=== PATIENT | male | born 2000 | race Caucasian/White ===

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

== ENCOUNTER 2019-03-22 12:26 | Emergency (ER) | payer MEDICAID ==
[2019-03-22 13:34] LABS: ADD UMIC YES; UR ASCORBIC ACID NEGATIVE (NEGATIVE); UR BACTERIA FEW /HPF (NONE SEEN); UR BILIRUBIN (Dip) NEGATIVE (NEGATIVE); UR BLOOD (Dip) NEGATIVE (NEGATIVE); UR CLARITY CLOUDY (CLEAR); UR COLOR AMBER (YELLOW); UR GLUCOSE (Dip) NEGATIVE (NEGATIVE); UR KETONES (Dip) NEGATIVE (NEGATIVE); UR LEUKOCYTE ESTERASE (Dip) 3+ Leu/ul (NEGATIVE); UR MUCUS MODERATE /HPF (NONE SEEN); UR NITRITE (Dip) NEGATIVE (NEGATIVE); UR RBC 19 /HPF (0-5); UR SPECIFIC GRAVITY (Dip) 1.027 (1.003-1.030); UR SQUAMOUS EPITHELIAL CELL FEW /HPF (FEW); UR TOTAL PROTEIN (Dip) 2+ mg/dl (NEGATIVE); UR UROBILINOGEN (Dip) 1+ mg/dL (NEGATIVE); UR WBC > 182 /HPF (0-5)
[2019-03-22] MEDS: CEFTRIAXONE 250 MG INJ IM (14:45)
[2019-03-22] MEDS: LIDOCAINE 1% (MPF) 5 ML VIAL INJ (14:45)
[2019-03-22] MEDS: AZITHROMYCIN 500 MG TAB PO (14:45)
== END 2019-03-22 14:59 | disposition home or self-care (01) ==
LOC: FTE 12:26
DX: R36.9 Urethral discharge, unspecified (principal)
CPT/HCPCS: 81001; 87591; 96372; 99284-25

== ENCOUNTER 2019-04-29 09:52 | Emergency (ER) | payer MEDICAID ==
[2019-04-29] MEDS: AZITHROMYCIN 500 MG TAB PO (10:23)
[2019-04-29] MEDS: CEFTRIAXONE 250 MG INJ IM (10:23)
== END 2019-04-29 10:41 | disposition home or self-care (01) ==
LOC: FTE 09:52
DX: N34.2 Other urethritis (principal)
CPT/HCPCS: 87086; 87591; 96372; 99284-25

== ENCOUNTER 2019-05-31 23:09 | Emergency (ER) | payer MEDICAID ==
[2019-06-01] MEDS: CEFTRIAXONE 250 MG INJ IM (00:01)
[2019-06-01] MEDS: AZITHROMYCIN 500 MG TAB PO (00:01)
[2019-06-01] MEDS: DOXYCYCLINE 100 MG TAB PO (00:01)
[2019-06-01 00:38] LABS: ADD UMIC YES; UR ASCORBIC ACID NEGATIVE (NEGATIVE); UR BACTERIA FEW /HPF (NONE SEEN); UR BILIRUBIN (Dip) NEGATIVE (NEGATIVE); UR BLOOD (Dip) NEGATIVE (NEGATIVE); UR CLARITY CLEAR (CLEAR); UR COLOR YELLOW (YELLOW); UR GLUCOSE (Dip) NEGATIVE (NEGATIVE); UR KETONES (Dip) NEGATIVE (NEGATIVE); UR LEUKOCYTE ESTERASE (Dip) 1+ Leu/ul (NEGATIVE); UR NITRITE (Dip) NEGATIVE (NEGATIVE); UR RBC 1 /HPF (0-5); UR SPECIFIC GRAVITY (Dip) 1.023 (1.003-1.030); UR TOTAL PROTEIN (Dip) NEGATIVE (NEGATIVE); UR UROBILINOGEN (Dip) NEGATIVE (NEGATIVE); UR WBC 73 /HPF (0-5)
[2019-06-01 18:54] LABS: RAPID PLASMA REAGIN NONREACTIVE (NR)
== END 2019-06-01 01:02 | disposition home or self-care (01) ==
LOC: FTE 06-01 01:02
DX: A64 Unspecified sexually transmitted disease (principal); F17.210 Nicotine dependence, cigarettes, uncomplicated
CPT/HCPCS: 36415; 81001; 86592; 87086; 87591; 96372; 99284-25